=== PATIENT | male | born 1980 | race African-American/Black ===

== ENCOUNTER 2021-10-30 16:52 | Inpatient (IN) | payer OTHER ==
[~2021-10-30] VITALS: Ht 175.3 cm; Wt 111.3 kg
[2021-10-30 21:28] LABS: BASOPHILS % 0.7 % (0.0-2.0); EOSINOPHILS % 1.3 % (0.0-5.0); HEMATOCRIT. 47.4 % (42.0-52.0); HEMOGLOBIN. 16.2 g/dL (14.0-18.0); LYMPHOCYTES % 23.3 % (20.0-50.0); MEAN CORPUSCULAR HEMOGLOBIN 33.9 pg (28.0-32.0); MEAN CORPUSCULAR VOLUME 99.6 fL (80.0-94.0); MEAN PLATELET VOLUME 8.7 fl (7.4-10.4); MONOCYTES % 8.7 % (2.0-8.0); PLATELET 286 x1000/uL (130-400); RED BLOOD CELL COUNT 4.77 mill/uL (4.7-6.1); RED CELL DISTRIBUTION WIDTH 14.9 % (11.6-14.6)
[2021-10-30 21:37] LABS: CHLORIDE 110 mEq/L (98-107)
[2021-10-30] MEDS ORDERED: FUROSEMIDE 40MG/4ML VIAL IVP NR (22:30)
[2021-10-31 08:20] VITALS: BP 156/112
[2021-10-31] MEDS ORDERED: ONDANSETRON HCL 4MG/2ML INJ IV PRN (08:30)
[2021-10-31] MEDS ORDERED: ACETAMINOPHEN 325MG TABLET PO PRN (08:30)
[2021-10-31] MEDS ORDERED: AMLODIPINE 10MG TABLET PO SCH (09:00)
[2021-10-31] MEDS: FUROSEMIDE 40MG/4ML VIAL IVP SCH ×2 (09:06→17:57)
[2021-10-31 10:31] VITALS: BP 156/112
[2021-10-31 12:01] VITALS: BP 147/94
[2021-10-31 16:17] VITALS: BP 120/82
[2021-10-31] MEDS: DILTIAZEM HCL 60MG TABLET PO SCH ×2 (17:56→23:44)
[2021-10-31] MEDS ORDERED: INFLUENZA VACCINE 05/PF 0.5 ML SYRINGE IM ONE (18:00)
[2021-10-31 20:00] VITALS: BP 148/74
[2021-10-31 22:03] LABS: *AMPHETAMINES SCREEN URINE NEGATIVE (NEGATIVE); *BARBITURATES SCREEN URINE NEGATIVE (NEGATIVE); *BENZODIAZEPINES SCREEN URINE NEGATIVE (NEGATIVE); *COCAINE SCREEN URINE NEGATIVE (NEGATIVE)
[2021-10-31 22:04] LABS: CANNABINOID URINE SCREEN NEGATIVE (NEGATIVE); METHADONE URINE SCREEN NEGATIVE (NEGATIVE); OPIATES URINE SCREEN NEGATIVE (NEGATIVE); PHENCYCLIDINE URINE SCREEN NEGATIVE (NEGATIVE)
[2021-11-01] VITALS: BP 150/107
[2021-11-01 04:00] VITALS: BP 145/101
[2021-11-01] MEDS: DILTIAZEM HCL 60MG TABLET PO SCH (05:46)
[2021-11-01 08:05] VITALS: BP 137/100
[2021-11-01] MEDS: FUROSEMIDE 40MG/4ML VIAL IVP SCH (08:55)
[2021-11-01] MEDS ORDERED: DILTIAZEM HCL 300MG CAPSULE SR 24HR PO SCH (11:00)
[2021-11-01 12:00] VITALS: BP 137/101
[2021-11-01] MEDS ORDERED: DILT300C53 PO (12:56)
[2021-11-01] MEDS ORDERED: FURO-151 MT (12:56)
[2021-11-01 14:23] VITALS: BP 137/101
== END 2021-11-01 17:40 | disposition home or self-care (01) | DRG 194 ==
LOC: ER 16:52 → MICUSO 10-31 00:31 → 6WST 10-31 08:03
PROVIDERS: ADMIT Internal Medicine; ATTEND Internal Medicine
DX: I11.0 Hypertensive heart disease with heart failure (principal); E43 Unspecified severe protein-calorie malnutrition; E87.8 Other disorders of electrolyte and fluid balance, not elsewhere classified; F17.210 Nicotine dependence, cigarettes, uncomplicated; F19.10 Other psychoactive substance abuse, uncomplicated; Z20.822 Contact with and (suspected) exposure to COVID-19; J44.9 Chronic obstructive pulmonary disease, unspecified; E66.9 Obesity, unspecified; Z68.36 Body mass index [BMI] 36.0-36.9, adult; Z88.1 Allergy status to other antibiotic agents; Z88.0 Allergy status to penicillin; Z23 Encounter for immunization; R22.0 Localized swelling, mass and lump, head; I50.33 Acute on chronic diastolic (congestive) heart failure
CPT/HCPCS: 36415; 71045; 80053; 80305; 83880; 85025; 87426; 90686; 93005; 93306; 99285; J1940